=== PATIENT | female | born 1990 | race African-American/Black ===

== ENCOUNTER 2016-06-17 22:25 | Emergency (ER) | payer MEDICAID ==
[~2016-06-17] VITALS: Ht 172.7 cm; Wt 74.8 kg
[~2016-06-17 22:25] MED LIST: AUGMENTIN 875-1 EAC1 ORAL; BENADRYL ALLERG25 M1 PO; IBUPROFEN600 MG ORAL; ZYRTEC-D TABLE1 EACH ORAL
[2016-06-17 22:58] VITALS: BP 137/84
[2016-06-17 23:05] LABS: APPEARANCE,URINE CLOUDY; KETONES,URINE NEGATIVE (NEGATIVE); LEUKOCYTE ESTERASE ,URINE 3+ (NEGATIVE); NITRITE,URINE POSITIVE (NEGATIVE); PH,URINE 6 (4.5-8.0); PROTEIN,URINE 3+ (NEGATIVE); UROBILINOGEN,URINE NORMAL MG/DL (0.0-1.0)
[2016-06-17 23:24] LABS: RBC,URINE 15-20 /HPF (0 - 2)
[2016-06-17 23:25] LABS: BACTERIA,URINE MANY /HPF; WBC,URINE TNTC /HPF (0 - 2)
[2016-06-17] MEDS ORDERED: Cephalexin 500mg cap ORAL ONE (23:30)
[2016-06-18] VITALS: BP 132/80
[2016-06-18] MEDS ORDERED: KEFLEX500 MG ORAL (00:15)
[2016-06-18] MEDS ORDERED: IBUPROFEN600 MG ORAL (00:15)
[2016-06-18 00:21] VITALS: BP 132/80
--- NOTE | 2016-06-18 01:58 | Emergency Room Report ---
History of Present Illness General Chief Complaint: Abdominal Pain Source: Patient Present Illness HPI 25-year-old female presents ED complaining of right flank pain times one day. Pain is sharp. 6/10. Nonradiating. Notes dysuria and frequent urination. No other aggravating relieving factors. Denies fevers or chills. Denies vomiting. Denies any other associated symptoms Allergies: Coded Allergies: No Known Allergies (Unverified , 12/11/14) Patient History Past Medical History: none Past Surgical History: none Pertinent Family History: none Social History: Denies: alcohol use, drug use, smoking Last Menstrual Period: 05/31/16 Now: No Immunizations: UTD Reviewed Nursing Documentation: PMH: Agreed, PSxH: Agreed Nursing Documentation-PMH Past Medical History: No Stated History Review of Systems All Other Systems: negative except mentioned in HPI Physical Exam Vital Signs Date Time Temp Pulse Resp B/P Pulse Ox O2 Delivery O2 Flow Rate FiO2 06/17/16 22:31 98.2 83 12 140/81 100 Room Air Sp02 EP Interpretation: reviewed, normal General Appearance: no apparent distress, alert, GCS 15, non-toxic Head: normocephalic Eyes: bilateral eye PERRL, bilateral eye normal inspection ENT: normal ENT inspection Neck: normal inspection Respiratory: normal inspection Cardiovascular #1: normal inspection Gastrointestinal: normal inspection Rectal: deferred Genitourinary: CVA tenderness (R) Musculoskeletal: normal inspection Neurologic: alert, oriented x3, responsive, motor strength/tone normal, sensory intact, speech normal Psychiatric: normal inspection Skin: normal inspection Lymphatic: normal inspection Medical Decision Making Diagnostic Impression: Primary Impression: Pyelonephritis ER Course Hospital Course 25-year-old female presents to ED complaining of dysuria with R flank pain Differential diagnoses include: UTI, cystitis, pyelonephritis Clinical course Patient placed on stretcher. After initial history and physical I ordered UA, urine . UA + bacteria. Clinically patient has pyelonephritis. However patient appears nontoxic and can take medications at home Given Keflex in ED Diagnosis - pyelonephritis Stable and discharged home with prescriptions for Rx Motrin, Keflex. Instructed to followup with PMD. Return to ED if symptoms recur or worsen Labs Test 06/17/16 22:40 Urine Color Pale yellow Urine Appearance Cloudy Urine pH 6 (4.5-8.0) Urine Specific [place] 1.010 (1.005-1.035) Urine Protein 3+ (NEGATIVE) Urine Glucose (UA) Negative (NEGATIVE) Urine Ketones Negative (NEGATIVE) Urine Occult Blood 5+ (NEGATIVE) Urine Nitrite Positive (NEGATIVE) Urine Bilirubin Negative (NEGATIVE) Urine Urobilinogen Normal MG/DL (0.0-1.0) Urine Leukocyte Esterase 3+ (NEGATIVE) Urine RBC 15-20 /HPF (0 - 2) Urine WBC Tntc /HPF (0 - 2) Urine Squamous Epithelial Cells None /LPF (NONE/OCC) Urine Bacteria Many /HPF (NONE) Urine HCG, Qualitative Negative Last Vital Signs Date Time Temp Pulse Resp B/P Pulse Ox O2 Delivery O2 Flow Rate FiO2 06/18/16 00:21 98.1 72 16 132/80 100 Room Air Status: improved Disposition: HOME, SELF-CARE Condition: Stable Scripts Ibuprofen* (MOTRIN*) 600 Mg Tablet 600 MG ORAL Q8H Y for For Pain, #30 TAB 0 Refills Prov: FINESSE LONG M.D. 06/18/16 Cephalexin* (KEFLEX*) 500 Mg Capsule 500 MG ORAL Q6H, #28 CAP 0 Refills Prov: FINESSE LONG M.D. 06/18/16 Departure Forms: Return to Work Return to Work Date: Jun 19, 2016 Work Restrictions: None Patient Instructions: Pyelonephritis, Adult FINESSE LONG M.D. Jun 18, 2016 01:58
== END 2016-06-18 00:21 | disposition home or self-care (01) ==
LOC: EMR 22:43
DX: N12 Tubulo-interstitial nephritis, not specified as acute or chronic (principal); R10.9 Unspecified abdominal pain; R30.0 Dysuria; R35.0 Frequency of micturition
CPT/HCPCS: 81003; 81025; 87086; 87181; 99284